=== PATIENT | male | born 1970 | race Caucasian/White ===

== ENCOUNTER 2016-11-15 11:20 | Emergency (ER) | payer OTHER ==
[2016-11-15 11:31] VITALS: RESP 16
--- NOTE | 2016-11-15 12:52 | EDPHY ---
H & P Stated Complaint: 2-3 days R side thoracic back pain. 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 Patient reports the onset of symptoms over the last 2-3 days. He describes a soreness, greater on the right than left. He does state he has been working harder than usual and thinks this might have precipitated it. He denies other potential precipitating factors. He is concerned as last year he had fluid in his lungs and this feels similar. He denies other associated signs or symptoms including no fevers, no cold symptoms, no chest pain, no shortness of breath, no cough, no pain or swelling in the legs. Review of systems: A 10 point review of systems was obtained and other than described above was negative (Armando Rain) - Physical Exam Exam: General Appearance: Alert, nontoxic. Eyes: Pupils equal and round no pallor or injection. ENT, Mouth: Mucous membranes moist. Respiratory: There are no retractions, lungs are clear to auscultation. Cardiovascular: Regular rate and rhythm. Radial pulses 2+ bilaterally. Femoral pulses 2+ bilaterally. Gastrointestinal: Abdomen is soft and non tender, no masses, no pulsatile masses, bowel sounds normal. Neurological: Alert and oriented x4. Strength and sensation intact and symmetrical. Skin: Warm and dry, no rashes. Musculoskeletal: Neck is supple non tender. The spine as well as the back is nontender to palpation. Extremities are symmetrical, full range of motion. Psychiatric: Patient is oriented X 3, there is no agitation. (Armando Rain) Constitutional: Initial Vital Signs Temperature (C) 36.4 C 11/15/16 11:27 Heart Rate 63 11/15/16 11:27 Respiratory Rate 16 11/15/16 11:27 Blood Pressure 130/57 H 11/15/16 11:27 O2 Sat (%) 97 11/15/16 11:27 O2 Delivery Mode Room Air Allergies/Adverse Reactions: No Known Allergies Allergy (Verified 11/15/16 11:30) Home Medications: Medication Instructions Recorded Aspirin EC [Aspirin EC 81 mg (*)] 81 mg PO DAILY 01/23/16 Atorvastatin Calcium [Lipitor 80 80 mg PO DAILY #30 tablet 01/27/16 mg] Isosorbide Mononitrate [Imdur 30 30 mg PO DAILY #30 tab.sr 01/27/16 mg (*)] Cholecalciferol Vit D3 [Vitamin D3 50,000 unit PO Q7D 06/26/16 (*)] Metformin HCl [Metformin 1000 mg] 1,000 mg PO HS 06/26/16 Metformin HCl [Metformin 1000 mg] 500 mg PO DAILY 06/26/16 Metoprolol Succinate Xr [Toprol Xl 25 mg PO DAILY 06/26/16 25 mg (*)] Metoprolol Succinate Xr [Toprol Xl 50 mg PO DAILY 06/26/16 50 mg (*)] Prasugrel HCl [Effient 5mg (*)] 5 mg PO DAILY #30 tab 06/27/16 Amlodipine Besylate 11/15/16 Cyclobenzaprine [Flexeril 10 MG 10 mg PO TID PRN #15 tab 11/15/16 (*)] Medical Decision Making - Diagnostics EKG Interpretation: 12-lead EKG interpreted by me; official reading is in trace master. My interpretation is sinus rate 64 no acute ischemic changes. (Raudel Harris) Imaging: Chest x-ray is negative for acute findings (Armando Rain) ED Course/Re-evaluation: Patient seen under the supervision of my secondary supervising physician Dr. Raudel Harris. Patient presents to the emergency department for back pain. States this is reminiscent of the pleural effusion he had previously. Patient is nontoxic. Afebrile and vital signs are stable. Physical exam is benign. Chest x-ray, EKG and laboratory studies unremarkable. Likely musculoskeletal in nature. Patient will be discharged home. Home care is discussed. He is asked to follow up with his primary care doctor this week for recheck. Return precautions are given. Patient voiced understanding and agreement with plan. The signal processing engineer was used to facilitate communication with patient. ( Armando Rain) Differential Diagnosis: Included but not limited to musculoskeletal pain, pneumonia, effusion, ACS, great vessel disease, PE (Armando Rain) Other Provider: PHYSICIAN DOCUMENTATION: The patient was evaluated and managed by the Physician Occupational Nurse and myself. I have reviewed the chart and agree with the findings and plan of care as documented. In addition, I examined the patient myself at 1320. History confirmed as back pain worse with movement. Physical findings as follows: No pulsatile abdominal mass. Procedure: Limited ultrasound of abdominal aorta. Indication: Back pain, history of vascular disease. Findings: Enlarged aortic aneurysm is not seen. Interpretation: No evidence of aortic aneurysm. Images personally obtained and interpreted by myself. Images archived. I am the secondary supervising physician. (Raudel Harris) - Data Points Laboratory Results: Laboratory Results 11/15/16 12:40 11/15/16 12:40 11/15/16 11/15/16 12:40 12:40 WBC 5.16 10^3/uL 10^3/uL (3.80-9.50) RBC 4.28 10^6/uL L 10^6/uL (4.40-6.38) Hgb 12.6 g/dL L g/dL (13.7-17.5) Hct 36.7 % L % (40.0-51.0) MCV 85.7 fL fL (81.5-99.8) MCH 29.4 pg pg (27.9-34.1) MCHC 34.3 g/dL g/dL (32.4-36.7) RDW 14.0 % % (11.5-15.2) Plt Count 235 10^3/uL 10^3/uL (150-400) MPV 10.0 fL fL (8.7-11.7) Neut % (Auto) 53.9 % % (39.3-74.2) Lymph % (Auto) 31.4 % % (15.0-45.0) [place] % (Auto) 11.4 % % (4.5-13.0) Eos % (Auto) 2.9 % % (0.6-7.6) Baso % (Auto) 0.2 % L % (0.3-1.7) Nucleat RBC Rel Count 0.0 % % (0.0-0.2) Absolute Neuts (auto) 2.78 10^3/uL 10^3/uL (1.70-6.50) Absolute Lymphs (auto) 1.62 10^3/uL 10^3/uL (1.00-3.00) Absolute Monos (auto) 0.59 10^3/uL 10^3/uL (0.30-0.80) Absolute Eos (auto) 0.15 10^3/uL 10^3/uL (0.03-0.40) Absolute Basos (auto) 0.01 10^3/uL L 10^3/uL (0.02-0.10) Absolute Nucleated RBC 0.00 10^3/uL 10^3/uL (0-0.01) Immature Gran % 0.2 % % (0.0-1.1) Immature Gran # 0.01 10^3/uL 10^3/uL (0.00-0.10) Sodium 141 mEq/L mEq/L (134-144) Potassium 4.2 mEq/L mEq/L (3.5-5.2) Chloride 107 mEq/L mEq/L (97-110) Carbon Dioxide 24 mEq/l mEq/l (22-31) Anion Gap 10 mEq/L mEq/L (8-16) BUN 15 mg/dL mg/dL (7-23) Creatinine 0.8 mg/dL mg/dL (0.7-1.3) Estimated GFR > 60 Glucose 84 mg/dL mg/dL (70-100) Calcium 9.1 mg/dL mg/dL (8.5-10.4) Troponin I < 0.012 ng/mL ng/mL (0-0.034) Departure - Departure Disposition: Home, Routine, Self-Care Clinical Impression: Back pain Qualifiers: Back pain location: thoracic back pain Chronicity: acute Back pain laterality: bilateral Qualified Code(s): M54.6 - Pain in thoracic spine Condition: Good Instructions: Back Pain (ED) Additional Instructions: Follow-up with your primary care doctor for recheck this week If symptoms worsen or new symptoms develop return to the emergency department for recheck ------- Jacinto florentino shamar de seguimiento con shah doctor de cabecera para ser revisado de nuevo esta semana. Si sntomas empeoran o si nuevos sntomas desarrollan regrese a la nikki de emergencias para ser revisado de nuevo. Referrals: Rosi Jain MD [Primary Care Provider] - As per Instructions Prescriptions: Cyclobenzaprine [Flexeril 10 MG (*)] 10 mg PO TID PRN #15 tab PRN Reason: Spasms
--- NOTE | 2016-11-15 12:53 | CPEKG ---
Heart Rate: 64 RR Interval: 938 P-R Interval: 156 QRSD Interval: 82 QT Interval: 388 QTC Interval: 401 P Counselor: 41 QRS Counselor: 17 T Wave Counselor: 45 EKG Severity - NORMAL ECG - EKG Impression: SINUS RHYTHM Electronically Signed By: Raudel Harris 15-Nov-2016 14:01:19
[2016-11-15 12:57] LABS: % IMMATURE GRANULYOCYTES 0.2 % (0.0-1.1); ABSOLUTE IMMATURE GRANULOCYTES 0.01 10^3/uL (0.00-0.10); ADD DIFF? NO; ADD MORPH? NO; ADD SCAN? NO; ATYPICAL LYMPHOCYTE FLAG 10 (0-99); FRAGMENT RBC FLAG 0 (0-99); HEMATOCRIT 36.7 % (40.0-51.0); HEMOGLOBIN 12.6 g/dL (13.7-17.5); LEFT SHIFT FLG 0 (0-99); LIPEMIA HEMOLYSIS FLAG 90 (0-99); MEAN CELL HEMOGLOBIN 29.4 pg (27.9-34.1); MEAN CELL HEMOGLOBIN CONCENTR. 34.3 g/dL (32.4-36.7); MEAN CELL VOLUME 85.7 fL (81.5-99.8); PLATELET CLUMPS FLAG 0 (0-99); PLATELET COUNT 235 10^3/uL (150-400); RED BLOOD CELL COUNT 4.28 10^6/uL (4.40-6.38)
[2016-11-15 13:08] LABS: ANION GAP 10 mEq/L (8-16); CALCIUM 9.1 mg/dL (8.5-10.4); CARBON DIOXIDE 24 mEq/l (22-31); CHLORIDE 107 mEq/L (97-110); CREATININE 0.8 mg/dL (0.7-1.3); GLOMERULAR FILTRATION RATE > 60; GLUCOSE 84 mg/dL (70-100); POTASSIUM 4.2 mEq/L (3.5-5.2); SODIUM 141 mEq/L (134-144)
[2016-11-15 13:20] LABS: TROPONIN I < 0.012 ng/mL (0-0.034)
[2016-11-15 13:44] VITALS: BP 111/66; PULSE 61; TEMP 98.2; O2SAT 95
== END 2016-11-15 13:43 | disposition home or self-care (01) ==
DX: M54.6 Pain in thoracic spine (principal); E11.9 Type 2 diabetes mellitus without complications; I25.810 Atherosclerosis of coronary artery bypass graft(s) without angina pectoris; Z79.82 Long term (current) use of aspirin

== ENCOUNTER 2017-01-30 13:01 | Emergency (ER) | payer OTHER ==
[2017-01-30 13:11] VITALS: BP 126/87; PULSE 57; RESP 18; TEMP 97.7; O2SAT 98
[2017-01-30] MEDS ORDERED: HYDROCOD/APAP 5/325 PREPACK#6 BTL TAKEHOME ONE (13:29)
[2017-01-30] MEDS ORDERED: IBUPROFEN 600 MG TAB PO ONE (13:29)
--- NOTE | 2017-01-30 13:32 | EDPHY ---
H & P Stated Complaint: this am/turned head/neck cracked r lateral pain into trapezius since Time Seen by Provider: 01/30/17 13:19 HPI/ROS: Chief Complaint: R neck pain HPI: 46-year-old male turns his head to the neck this morning felt a Armando and had onset of pain in the right side of his neck going into his right upper back. Denies any falls or traumatic injuries. No numbness or tingling. No weakness. He has not had any recent illness. No fevers or chills. No headache. No nausea or vomiting. ROS: 10 point Review of Systems is negative except as noted in the HPI. PMH: Coronary artery disease Social History: No smoking, no alcohol, no recreational drug use Family History: non-contributory Physical Exam: Gen: Awake, Alert, No Distress HEENT: Nose: no rhinorrhea Eyes: PERRLA, EOMI Mouth: Moist mucosa Neck: Supple, tenderness in the right paraspinal right trapezius reproducing presenting complaint. Decreased flexion but full extension and lateral rotation to the left and to the right. Chest: nontender, lungs clear to auscultation Heart: S1, S2 normal, no murmur Abd: Soft, non-tender, no guarding Back: no CVA tenderness, no midline tenderness Ext: no edema, non-tender Skin: no rash Neuro: CN II-XII intact, Sensation grossly intact, Strength 5/5 in bilateral upper and lower extremities - Personal History Current Tetanus/Diphtheria Vaccine: Unsure - Medical/Surgical History Hx Asthma: No Hx Chronic Respiratory Disease: No Hx Diabetes: Yes Hx Cardiac Disease: Yes Hx Renal Disease: No Hx Cirrhosis: No Hx Alcoholism: No Hx HIV/AIDS: No Hx Splenectomy or Spleen Trauma: No Other PMH: NIDDM, Rotator cuff repair, herniorrhaphy, CAD, 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, Hiatal hernia, PNA - Social History Smoking Status: Never smoked Constitutional: Initial Vital Signs Temperature (C) 36.5 C 01/30/17 13:08 Heart Rate 57 L 01/30/17 13:08 Respiratory Rate 18 01/30/17 13:08 Blood Pressure 126/87 H 01/30/17 13:08 O2 Sat (%) 98 01/30/17 13:08 O2 Delivery Mode Room Air Allergies/Adverse Reactions: No Known Allergies Allergy (Verified 01/30/17 13:06) Home Medications: Medication Instructions Recorded Aspirin EC [Aspirin EC 81 mg (*)] 81 mg PO DAILY 01/23/16 Atorvastatin Calcium [Lipitor 80 80 mg PO DAILY #30 tablet 01/27/16 mg] Isosorbide Mononitrate [Imdur 30 30 mg PO DAILY #30 tab.sr 01/27/16 mg (*)] Cholecalciferol Vit D3 [Vitamin D3 50,000 unit PO Q7D 06/26/16 (*)] Metformin HCl [Metformin 1000 mg] 1,000 mg PO HS 06/26/16 Metformin HCl [Metformin 1000 mg] 500 mg PO DAILY 06/26/16 Metoprolol Succinate Xr [Toprol Xl 25 mg PO DAILY 06/26/16 25 mg (*)] Metoprolol Succinate Xr [Toprol Xl 50 mg PO DAILY 06/26/16 50 mg (*)] Amlodipine Besylate 11/15/16 Cyclobenzaprine [Flexeril 10 MG 10 mg PO TID PRN #15 tab 11/15/16 (*)] Medical Decision Making - Data Points Medications Given: Discontinued Medications Hydrocodone Bitart/Acetaminophen ([place] 5/325mg Prepack#6) 1 btl TAKEHOME EDNOW ONE Stop: 01/30/17 13:30 Last Admin: 01/30/17 13:33 Dose: 1 btl Ibuprofen (Motrin) 600 mg PO EDNOW ONE Stop: 01/30/17 13:30 Last Admin: 01/30/17 13:33 Dose: 600 mg Departure - Departure Disposition: Home, Routine, Self-Care Clinical Impression: Neck pain Condition: Good Instructions: Hydrocodone/Acetaminophen (By mouth), Neck Pain (ED) Additional Instructions: May take ibuprofen 600 mg 3 times a day as needed for pain. Apply ice 15 minutes for every hour the next 2 days while awake. You may take the hydrocodone with acetaminophen if you're still having pain. Follow up with primary care doctor in 2-3 days for re-evaluation. Puede tereza ibuprofen 600 mg 3 veces al alma andrea sea necesario para el dolor. Aplique hielo por 15 minutos por hora en los proximos 2 schaefer mientras juliocesar despierto. Jacinto un seguimiento con shah doctor de cuidado primario en 2-3 schaefer para florentino reevaluacion. Referrals: Rosi Jain MD [Primary Care Provider] - As per Instructions Print Language: Green[place]ic
== END 2017-01-30 13:51 | disposition home or self-care (01) ==
DX: M54.2 Cervicalgia (principal); E11.9 Type 2 diabetes mellitus without complications; I25.810 Atherosclerosis of coronary artery bypass graft(s) without angina pectoris; Z79.82 Long term (current) use of aspirin; Z79.84 Long term (current) use of oral hypoglycemic drugs